=== PATIENT | male | born 1975 | race Caucasian/White ===

== ENCOUNTER 2016-05-28 09:44 | Emergency (ER) | payer SELFPAY ==
[~2016-05-28] VITALS: Ht 185.4 cm; Wt 82.5 kg
[~2016-05-28 09:44] MED LIST: AMIT50TA PO; APIX5TAB PO; CALC-192 PO; CYAN100028 PO; DIAZ5TAB PO; DIAZ5TAB4 PO; DULO30CA2 PO; DULO60CA55 PO; DULO60CA7 PO; Enoxaparin Sodium SQ; GABA300C10 PO; GABA800T2 PO; HYDR50CA2 PO; LORA-446 PO; LYSI500T3 PO; MAGN400T26 PO; MELA5POW BC; MORP15TA3 PO; NICO1PAT5 TD; OLAN15TA3 PO; ONDA4TAB13 PO; OXYC-229 PO; OXYC10TA6 PO; OXYC1TAB7 PO; SULF1TAB3 PO; TRAM50TA2 PO; TRAZ100T15 PO; TRAZ50TA18 PO; ZIPR20CA2 PO; ZIPR60CA3 PO
[2016-05-28] MEDS ORDERED: SODIUM CHLORIDE 0.9% 1,000 ML IV ONE (10:40)
[2016-05-28] MEDS ORDERED: MORPHINE SULFATE 4 MG/ML, 1ML ONE ×2 (10:51→11:19)
[2016-05-28] MEDS ORDERED: ONDANSETRON 2MG/ML, 2ML ONE (10:52)
[2016-05-28] MEDS: MORPHINE SULFATE 4 MG/ML, 1ML IVPush PRN ×2 (10:59→11:21)
[2016-05-28] MEDS ORDERED: ASPIRIN 81 MG TABLET CHEW PO ONE (11:00)
[2016-05-28] MEDS ORDERED: ONDANSETRON 2MG/ML, 2ML IVPush ONE (11:00)
[2016-05-28] MEDS ORDERED: SODIUM CHLORIDE FLUSH 10ML SYR IVF ONE (11:00)
[2016-05-28 11:03] LABS: HEMOGLOBIN 14.9 g/dL (13.7-18.0)
[2016-05-28] MEDS ORDERED: ASPIRIN 81 MG TABLET CHEW ONE (11:12)
[2016-05-28 11:16] LABS: BLOOD UREA NITROGEN 10 mg/dL (7-18)
[2016-05-28] MEDS ORDERED: OXYC1TAB9 PO (11:18)
[2016-05-28] MEDS ORDERED: GABA-827 PO (11:18)
[2016-05-28] MEDS ORDERED: GABA800T2 PO (11:18)
[2016-05-28 11:22] LABS: ASPARTATE AMINO TRANSFERASE 20 U/L (15-37)
[2016-05-28 11:23] LABS: IS PT STATUS REG ER OR PRE ER? YES
[2016-05-28 12:40] VITALS: BP 136/81
[2016-05-28] MEDS ORDERED: OMNIPAQUE 350 MG/ML, 100ML BOTTLE ONE (12:44)
== END 2016-05-28 13:55 | disposition home or self-care (01) ==
LOC: ED 13:40
DX: R07.89 Other chest pain (principal); K80.50 Calculus of bile duct without cholangitis or cholecystitis without obstruction; E78.5 Hyperlipidemia, unspecified; E78.00 Pure hypercholesterolemia, unspecified; F43.10 Post-traumatic stress disorder, unspecified; Z86.711 Personal history of pulmonary embolism
CPT/HCPCS: 36415; 71010; 71275; 80053; 84484; 85025; 85610; 85730; 93005; 96361; 96374; 96375; 99285; J2405; J7030; Q9967

== ENCOUNTER 2016-05-28 22:32 | Inpatient (IN) | payer SELFPAY ==
[~2016-05-28] VITALS: Ht 185.4 cm; Wt 81.9 kg
[~2016-05-28 22:32] MED LIST changes: +GABA-827 PO; +OXYC1TAB9 PO
[2016-05-28] MEDS ORDERED: SODIUM CHLORIDE FLUSH 10ML SYR IVF ONE (23:30)
[2016-05-28] MEDS ORDERED: ONDANSETRON 2MG/ML, 2ML IVPush ONE (23:30)
[2016-05-28] MEDS ORDERED: SODIUM CHLORIDE 0.9% 1,000ML IVBOLUS ONE (23:30)
[2016-05-28] MEDS ORDERED: HYDROmorphone 1 MG/ML, 1ML ONE (23:43)
[2016-05-28] MEDS ORDERED: ONDANSETRON 2MG/ML, 2ML ONE (23:44)
[2016-05-28 23:46] LABS: HEMOGLOBIN 13.2 g/dL (13.7-18.0)
[2016-05-28] MEDS: HYDROmorphone 1 MG/ML, 1ML IVPush PRN (23:50)
[2016-05-28 23:59] LABS: BLOOD UREA NITROGEN 9 mg/dL (7-18)
[2016-05-29 00:02] LABS: ASPARTATE AMINO TRANSFERASE 16 U/L (15-37)
[2016-05-29] MEDS ORDERED: HYDROmorphone 1 MG/ML, 1ML ONE ×3 (00:23→07:18)
[2016-05-29] MEDS: HYDROmorphone 1 MG/ML, 1ML IVPush PRN ×3 (00:30→07:20)
[2016-05-29] MEDS ORDERED: CEFOTETAN PMX 1GM/50ML 50 ML IV ONE (01:30)
[2016-05-29] MEDS ORDERED: CEFOTETAN PMX 1GM/50ML 50 ML ONE (01:42)
[2016-05-29] MEDS ORDERED: SODIUM CHLORIDE 0.9% 1,000 ML IV ONE (01:59)
[2016-05-29] MEDS ORDERED: MORPHINE SULFATE 4 MG/ML, 1ML IVPush PRN (02:00)
[2016-05-29] MEDS ORDERED: ONDANSETRON 2MG/ML, 2ML IVPush PRN ×2 (02:00→09:00)
[2016-05-29] MEDS ORDERED: PROMETHAZINE 25 MG/ML, 1ML IM PRN (02:00)
[2016-05-29] MEDS ORDERED: SODIUM CHLORIDE FLUSH 10ML SYR IVF PRN (02:00)
[2016-05-29] MEDS ORDERED: MORPHINE SULFATE 4 MG/ML, 1ML ONE (04:52)
[2016-05-29 07:22] VITALS: BP 124/65
[2016-05-29] MEDS ORDERED: MIDAZOLAM 1 MG/ML, 2ML ONE (08:18)
[2016-05-29] MEDS ORDERED: FENTANYL PF 250 MCG/5ML ONE (08:18)
[2016-05-29] MEDS ORDERED: GLYCOPYRROLATE 0.2MG/1ML ONE (08:29)
[2016-05-29] MEDS ORDERED: SUCCINYLCHOLINE 20 MG/ML, 10ML ONE (08:29)
[2016-05-29] MEDS ORDERED: ONDANSETRON 2MG/ML, 2ML ONE (08:29)
[2016-05-29] MEDS ORDERED: PROPOFOL 10 MG/ML, 20ML ONE (08:29)
[2016-05-29] MEDS ORDERED: NEOSTIGMINE 1 MG/ML, 10ML ONE (08:29)
[2016-05-29] MEDS ORDERED: ROCURONIUM 10 MG/ML ONE (08:29)
[2016-05-29] MEDS ORDERED: BUPIVACAINE/PF-EPI 0.25% 1:200K INFIL ONE (08:47)
[2016-05-29] MEDS ORDERED: LABETALOL 5MG/ML, 20ML IV PRN (09:00)
[2016-05-29] MEDS ORDERED: hydrALAzine 20 MG/ML, 1ML IV PRN (09:00)
[2016-05-29] MEDS ORDERED: OXYcodone 5 MG/5 ML ORAL.SOL UDC PO PRN (09:00)
[2016-05-29] MEDS ORDERED: ACETAMINOPHEN 325 MG TABLET PO PRN (09:00)
[2016-05-29] MEDS ORDERED: PROMETHAZINE 25 MG/ML, 1ML IV PRN (09:00)
[2016-05-29] MEDS ORDERED: ALBUTEROL SULFATE 2.5 MG/3 ML NPPB PRN (09:00)
[2016-05-29] MEDS ORDERED: HYDROmorphone 1 MG/ML, 1ML IV PRN (09:00)
[2016-05-29] MEDS ORDERED: EPHEDRINE 50 MG/ML, 1ML IVPush PRN (09:00)
[2016-05-29] MEDS ORDERED: MIDAZOLAM 1 MG/ML, 2ML IV PRN (09:00)
[2016-05-29] MEDS ORDERED: METOPROLOL 1 MG/ML, 5ML IV PRN (09:00)
[2016-05-29] MEDS ORDERED: MEPERIDINE/PF 25MG/0.5ML IVPush PRN (09:00)
[2016-05-29] MEDS ORDERED: ACETAMINOPHEN 325 MG TABLET ONE (09:38)
[2016-05-29] MEDS ORDERED: OXYcodone 5 MG/5 ML ORAL.SOL UDC ONE (09:38)
[2016-05-29] MEDS ORDERED: FENTANYL PF 100 MCG/2ML ONE (09:38)
[2016-05-29] MEDS ORDERED: ACETAMINOPHEN 650 MG/20.3 ML UDC ONE (09:38)
[2016-05-29] MEDS: FENTANYL PF 100 MCG/2ML IV PRN ×2 (09:40→09:49)
== END 2016-05-30 11:35 | disposition home or self-care (01) | DRG 419 ==
LOC: ED 23:59 → EDIP 05-29 01:59
PROVIDERS: ADMIT Surgery; ATTEND Surgery
PROC: 0FT44ZZ Resection of Gallbladder, Percutaneous Endoscopic Approach (ICD-10-PCS; principal; 2016-05-29 11:00)
DX: K80.00 Calculus of gallbladder with acute cholecystitis without obstruction (principal); G89.29 Other chronic pain; F17.210 Nicotine dependence, cigarettes, uncomplicated; J44.9 Chronic obstructive pulmonary disease, unspecified; Z82.49 Family history of ischemic heart disease and other diseases of the circulatory system
CPT/HCPCS: 36415; 76700; 80053; 83690; 85025; 88304; 96374; 96375; 96376; J1170; J2250; J2405; J2704; J2710; J3010; J3490; J0330; J7030; S0074

== ENCOUNTER 2016-12-20 17:54 | Emergency (ER) | payer OTHER ==
[~2016-12-20] VITALS: Ht 185.4 cm; Wt 90.7 kg
[~2016-12-20 17:54] MED LIST changes: +NICO-487 TD; -NICO1PAT5 TD; -OXYC-229 PO; +OXYC-307 PO; +SULF-169 PO; -SULF1TAB3 PO
[2016-12-20] MEDS ORDERED: HYDROmorphone 1 MG/ML, 1ML ONE (18:27)
[2016-12-20] MEDS ORDERED: HYDROmorphone 1 MG/ML, 1ML IM ONE (18:30)
[2016-12-20 18:59] VITALS: BP 141/98
== END 2016-12-20 19:08 | disposition home or self-care (01) ==
LOC: ED 18:54
DX: S39.012A Strain of muscle, fascia and tendon of lower back, initial encounter (principal); M51.26 Other intervertebral disc displacement, lumbar region; F32.9 Major depressive disorder, single episode, unspecified; E78.00 Pure hypercholesterolemia, unspecified; F41.1 Generalized anxiety disorder; F43.10 Post-traumatic stress disorder, unspecified; G43.909 Migraine, unspecified, not intractable, without status migrainosus; G89.29 Other chronic pain; M79.7 Fibromyalgia; X58.XXXA Exposure to other specified factors, initial encounter; Y93.89 Activity, other specified; Y92.89 Other specified places as the place of occurrence of the external cause; Y99.8 Other external cause status
CPT/HCPCS: 96372; 99283; J1170; J7512

== ENCOUNTER 2017-03-01 20:28 | Emergency (ER) | payer OTHER ==
[~2017-03-01] VITALS: Ht 185.4 cm; Wt 88.9 kg
[2017-03-01 20:31] VITALS: BP 132/78
[2017-03-01] MEDS ORDERED: LIDOCAINE 1%, 10ML ONE (21:02)
== END 2017-03-01 23:17 | disposition home or self-care (01) ==
LOC: ED 23:09
DX: S61.213A Laceration without foreign body of left middle finger without damage to nail, initial encounter (principal); E78.00 Pure hypercholesterolemia, unspecified; W45.8XXA Other foreign body or object entering through skin, initial encounter; Y93.89 Activity, other specified; Y92.89 Other specified places as the place of occurrence of the external cause; Y99.8 Other external cause status
CPT/HCPCS: 12001; 99284

== ENCOUNTER 2017-04-29 18:58 | Emergency (ER) | payer OTHER ==
[~2017-04-29] VITALS: Ht 185.4 cm; Wt 88.8 kg
[2017-04-29 18:59] VITALS: BP 118/86
[2017-04-29 19:32] LABS: BASOPHILS # (AUTO) 0.01 x10^3/uL (0-0.1); BASOPHILS % (AUTO) 0 % (0-1); EOSINOPHILS # (AUTO) 0.17 x10^3/uL (0-0.4); EOSINOPHILS % (AUTO) 3 % (1-7); LYMPHOCYTES # (AUTO) 0.86 x10^3/uL (1-3.4); LYMPHOCYTES % (AUTO) 17 % (22-44); MD NO; MEAN CORPUSCULAR HEMOGLOBIN 31.2 pg (27.5-34.5); MEAN CORPUSCULAR HGB CONC 34.5 g/dL (33.2-36.2); MEAN CORPUSCULAR VOLUME 90.2 fL (81-97); MEAN PLATELET VOLUME 8.7 fL (7.4-10.4); MONOCYTES # (AUTO) 0.55 x10^3/uL (0.2-0.8); MONOCYTES % (AUTO) 11 % (2-9); NEUTROPHILS # (AUTO) 3.56 x10^3/uL (1.8-6.8); NEUTROPHILS % (AUTO) 69 % (42-75); PLATELET COUNT 179 x10^3/uL (130-400); RED CELL DISTRIBUTION WIDTH 13.1 % (9.4-14.8)
[2017-04-29 19:41] LABS: ALANINE AMINOTRANSFERASE 68 U/L (12-78); ALBUMIN 3.7 g/dL (3.4-5.0); ANION GAP 9 mmol/L (5-15); CALCIUM 8.6 mg/dL (8.5-10.1); CHLORIDE 109 mmol/L (98-107); CREATININE 0.95 mg/dL (0.7-1.3)
[2017-04-29 19:43] LABS: ALKALINE PHOSPHATASE 106 U/L (45-117); BILIRUBIN,TOTAL 0.7 mg/dL (0.2-1.0); TOTAL PROTEIN 7.1 g/dL (6.4-8.2)
== END 2017-04-29 21:14 | disposition home or self-care (01) ==
LOC: ED 19:20
DX: J11.1 Influenza due to unidentified influenza virus with other respiratory manifestations (principal); E78.00 Pure hypercholesterolemia, unspecified; F17.210 Nicotine dependence, cigarettes, uncomplicated
CPT/HCPCS: 36415; 71046; 80053; 85025; 93005; 99285

== ENCOUNTER 2017-05-23 15:31 | Emergency (ER) | payer OTHER ==
[~2017-05-23] VITALS: Ht 185.4 cm; Wt 85.7 kg
[2017-05-23 15:40] VITALS: BP 128/81
[2017-05-23] MEDS ORDERED: OXYcodone/APAP 5/325MG TABLET PO ONE (16:00)
[2017-05-23] MEDS ORDERED: OXYcodone/APAP 5/325MG TABLET ONE (16:21)
== END 2017-05-23 16:29 | disposition home or self-care (01) ==
LOC: ED 16:15
DX: K08.89 Other specified disorders of teeth and supporting structures (principal); Z86.711 Personal history of pulmonary embolism
CPT/HCPCS: 99283

== ENCOUNTER 2017-05-27 16:14 | Emergency (ER) | payer OTHER ==
[~2017-05-27] VITALS: Ht 185.4 cm; Wt 82.7 kg
[2017-05-27] MEDS ORDERED: BUPIVACAINE/PF 0.5% ONE (16:42)
[2017-05-27 17:17] VITALS: BP 134/81
== END 2017-05-27 17:20 | disposition home or self-care (01) ==
LOC: ED 17:10
DX: K02.9 Dental caries, unspecified (principal); G43.909 Migraine, unspecified, not intractable, without status migrainosus; E78.00 Pure hypercholesterolemia, unspecified; M79.7 Fibromyalgia; F17.200 Nicotine dependence, unspecified, uncomplicated
CPT/HCPCS: 64400

== ENCOUNTER 2018-05-09 13:45 | Emergency (ER) | payer OTHER ==
[~2018-05-09] VITALS: Ht 185.4 cm; Wt 79.0 kg
[~2018-05-09 13:45] MED LIST changes: -GABA800T2 PO; +GABA800T5 PO; +OXYC-432 PO; -OXYC1TAB9 PO; +TRAZ-137 PO; -TRAZ100T15 PO; -TRAZ50TA18 PO; +TRAZ50TA66 PO
[2018-05-09] MEDS ORDERED: LIDOCAINE-MPF 1%, 5ML INFIL ONE (14:30)
[2018-05-09 14:40] LABS: BASOPHILS # (AUTO) 0.05 x10^3/uL (0-0.1); BASOPHILS % (AUTO) 1 % (0-1); EOSINOPHILS # (AUTO) 0.11 x10^3/uL (0-0.4); EOSINOPHILS % (AUTO) 2 % (1-7); LYMPHOCYTES % (AUTO) 31 % (22-44); MD NO; MEAN CORPUSCULAR HEMOGLOBIN 31.4 pg (27.5-34.5); MEAN CORPUSCULAR HGB CONC 33.7 g/dL (33.2-36.2); MEAN CORPUSCULAR VOLUME 93.2 fL (81-97); MEAN PLATELET VOLUME 8.2 fL (7.4-10.4); MONOCYTES # (AUTO) 0.33 x10^3/uL (0.2-0.8); MONOCYTES % (AUTO) 5 % (2-9); NEUTROPHILS # (AUTO) 3.97 x10^3/uL (1.8-6.8); NEUTROPHILS % (AUTO) 61 % (42-75); PLATELET COUNT 311 x10^3/uL (130-400); RED BLOOD COUNT 4.78 x10^6/uL (4.38-5.82); RED CELL DISTRIBUTION WIDTH 12.3 % (9.4-14.8)
[2018-05-09 14:48] LABS: ALANINE AMINOTRANSFERASE 23 U/L (12-78); ANION GAP 8 mmol/L (5-15); CALCIUM 8.4 mg/dL (8.5-10.1); CHLORIDE 111 mmol/L (98-107); CREATININE 0.78 mg/dL (0.7-1.3); SALICYLATE LEVEL 3.4 mg/dL (2.8-20.0)
[2018-05-09] MEDS ORDERED: LIDOCAINE-MPF 1%, 5ML ONE (14:57)
[2018-05-09 15:00] LABS: ALKALINE PHOSPHATASE 97 U/L (45-117); BILIRUBIN,TOTAL 1.2 mg/dL (0.2-1.0)
[2018-05-09 15:05] LABS: ACETAMINOPHEN < 2 mcg/mL (10-30)
[2018-05-09 16:06] LABS: AMPHETAMINE SCREEN, URINE Positive (Negative); BARBITURATE SCREEN, URINE Negative (Negative); BENZODIAZEPINE SCREEN, URINE Negative (Negative); CANNABINOID SCREEN, URINE Negative (Negative); COCAINE SCREEN, URINE Negative (Negative); METHADONE SCREEN, URINE Negative (Negative); OPIATE SCREEN, URINE Negative (Negative)
--- NOTE | 2018-05-09 16:14 | NUR ---
LACERATION REPAIRED BY PROVIDER. PT REMAINS COOPERATIVE. SPOKE WITH WHO SAID SHE WILL COME IN AND VISIT. FUTHER STATES HER DRANK WHISKEY TODAY AND THAT MAKES HIM "SCHIZOPHRENIC":
[2018-05-09] MEDS ORDERED: LORazepam 1MG TABLET PO ONE (17:30)
--- NOTE | 2018-05-09 17:42 | NUR ---
AT BEDSIDE. PT TEARY, UPSET. CONTINUE TO MONITOR
--- NOTE | 2018-05-09 18:00 | NUR ---
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 THEY ARE SPEAKING ABOUT WHAT LEAD UP TO THE EVENTS OF TODAY.
[2018-05-09 19:17] VITALS: BP 122/79
--- NOTE | 2018-05-09 19:17 | NUR ---
REPORT TO RAND AMEZCUA
[2018-05-09] MEDS ORDERED: LORazepam 1MG TABLET ONE (19:36)
--- NOTE | 2018-05-09 20:30 | NUR ---
PT RESTLESS, THRASHING AROUND ON BED, PT HAS HAD ATIVAN, CALL LIGHT IN REACH
[2018-05-09] MEDS ORDERED: ZIPRASIDONE 20 MG INJ IM ONE ×2 (21:30→21:34)
--- NOTE | 2018-05-09 21:40 | NUR ---
SPOKE WITH MD ABOUT PT, C/O PAIN AND ANXIETY, ORDER FOR GEODON RECEIVED AND PT MEDICATED, GIVEN NADIYA
--- NOTE | 2018-05-09 22:46 | NUR ---
TP RN: TELEPSYCH CONSULT INITIATED.
--- NOTE | 2018-05-09 23:14 | NUR ---
PT RESTING QUIETLY WITH EYES CLOSED, NO DISTRESS NOTED, CALL LIGHT I REACH, SITTER OUTSIDE DOOR
--- NOTE | 2018-05-09 23:58 | NUR ---
TP RN: TELE PSYCH MONITOR AT BS. PT AWARE OF POC AND DEMONSTRATES UNDERSTANDING. PT CALM AND COOPERATIVE. SITTER AT DOORWAY FOR OBS
== END 2018-05-10 01:02 | disposition home or self-care (01) ==
LOC: ED 17:37
DX: F41.1 Generalized anxiety disorder (principal); F10.121 Alcohol abuse with intoxication delirium; F15.921 Other stimulant use, unspecified with intoxication delirium; F43.10 Post-traumatic stress disorder, unspecified; E78.00 Pure hypercholesterolemia, unspecified; F32.9 Major depressive disorder, single episode, unspecified; E78.5 Hyperlipidemia, unspecified
CPT/HCPCS: 36415; 80053; 80307; 80329; 85025; 96372; 99284; J3486; G0480

== ENCOUNTER 2020-03-18 15:24 | Emergency (ER) | payer MEDICAID, OTHER ==
[~2020-03-18] VITALS: Ht 185.4 cm; Wt 92.9 kg
[~2020-03-18 15:24] MED LIST changes: -DULO60CA55 PO; +DULO60CA56 PO; +MORP-29 PO; -MORP15TA3 PO; -NICO-487 TD; +NICO-587 TD; -OXYC-307 PO; +OXYC-380 PO; -OXYC-432 PO; +OXYC1TAB18 PO; -TRAZ-137 PO; +TRAZ-175 PO
--- NOTE | 2020-03-18 15:52 | NUR ---
patient arrives stating he needs his levothyroxine. he hasn't had it for a week, and abilify and amitriptaline
[2020-03-18] MEDS ORDERED: LORazepam 2 MG/ML, 1ML ONE (16:23)
[2020-03-18] MEDS ORDERED: SODIUM CHLORIDE 0.9% 1,000ML IVBOLUS ONE (16:30)
[2020-03-18] MEDS ORDERED: LORazepam 2 MG/ML, 1ML IVPush PRN (16:30)
[2020-03-18] MEDS ORDERED: SODIUM CHLORIDE FLUSH 10ML SYR IVF ONE (16:30)
--- NOTE | 2020-03-18 16:37 | NUR ---
made patient a pnut butter & jelly and water. he pee'd 550 out light yellow clr. in bed, rails up.
[2020-03-18 16:44] LABS: ALBUMIN 4.1 g/dL (3.4-5.0); ANION GAP 10 mmol/L (5-15); CALCIUM 8.9 mg/dL (8.5-10.1); CHLORIDE 110 mmol/L (98-107); CREATININE 1.07 mg/dL (0.7-1.3)
[2020-03-18 16:57] LABS: BASOPHILS % (AUTO) 1 % (0-1); EOSINOPHILS % (AUTO) 1 % (1-7); LYMPHOCYTES % (AUTO) 20 % (22-44); MEAN CORPUSCULAR HEMOGLOBIN 31.3 pg (27.5-34.5); MEAN PLATELET VOLUME 8.5 fL (7.4-10.4); MONOCYTES % (AUTO) 7 % (2-9); NEUTROPHILS % (AUTO) 71 % (42-75); PLATELET COUNT 210 x10^3/uL (130-400); RED BLOOD COUNT 5.34 x10^6/uL (4.38-5.82); RED CELL DISTRIBUTION WIDTH 12.3 % (9.4-14.8)
[2020-03-18 16:59] LABS: MD NO
[2020-03-18 17:28] VITALS: BP 132/78
--- NOTE | 2020-03-18 17:29 | NUR ---
PATIENT UP ATE ALL OF DINNER, TALKING, AND STATES FEELS FINE.
== END 2020-03-18 18:15 | disposition home or self-care (01) ==
LOC: ED 16:35
DX: F10.120 Alcohol abuse with intoxication, uncomplicated (principal); Z76.0 Encounter for issue of repeat prescription; F41.1 Generalized anxiety disorder; I51.7 Cardiomegaly; R00.0 Tachycardia, unspecified; E78.00 Pure hypercholesterolemia, unspecified; E78.5 Hyperlipidemia, unspecified; M79.7 Fibromyalgia; F17.200 Nicotine dependence, unspecified, uncomplicated; Z86.711 Personal history of pulmonary embolism; Y90.9 Presence of alcohol in blood, level not specified
CPT/HCPCS: 36415; 80048; 82040; 85025; 93005; 96361; 96374; 99284; J2060; J7030